=== PATIENT | male | born 1995 | race Caucasian/White ===

== ENCOUNTER 2019-07-02 09:13 | Emergency (ER) | payer OTHER ==
[2019-07-02 09:17] VITALS: BP 127/64; PULSE 78; TEMP 98; BMI 23.6
[2019-07-02] MEDS ORDERED: IBUPROFEN 400 MG TABLET (FP) PO ONE ×2 (09:29)
--- NOTE | 2019-07-02 09:33 | PDOC ---
History of Present Illness - General Chief Complaint: Injury Stated Complaint: INJURY Time Seen by Provider: 07/02/19 09:20 History Source: Patient Exam Limitations: Clinical Condition - History of Present Illness Initial Comments: 07/02/19 09:31 Patient with no significant past medical history present with complaint of pain to back of left hand status post accidentally hitting door on the left hand while at work this morning. Patient reports he was cleaning the area and accidentally hit a wooden cardboard door on the left hand. Denies numbness or tingling sensation. Patient did not take anything for pain. Denies any previous injury or trauma to hand Occurred: reports: this morning Pain Location: reports: upper extremity (left had) Method of Injury: Yes: direct blow Modifying Factors: improves with: None Loss of Consciousness: no loss of consciousness Past History - Past Medical History Allergies/Adverse Reactions: Allergies Allergy/AdvReac Type Severity Reaction Status Date / Time No Known Allergies Allergy Verified 07/02/19 09:15 Home Medications: Ambulatory Orders Ibuprofen 600 mg PO Q8H PRN #20 tablet 07/02/19 COPD: No - Psycho Social/Smoking Cessation Hx Smoking History: Never smoked Hx Alcohol Use: No Drug/Substance Use Hx: No Review of Systems - Review of Systems Able to Perform ROS?: Yes Is the patient limited B[place]ian proficient: No Constitutional: No: Weakness HEENTM: No: Symptoms Reported, See HPI, Eye Pain, Blurred Vision, Tearing, Recent change in vision, Double Vision, Cataracts, Ear Pain, Ocular Prothesis, Ear Discharge, Nose Pain, Nose Congestion, Tinnitus, Nose Bleeding, Hearing Loss , Throat Pain, Throat Swelling, Mouth Pain, Dental Problems, Difficulty Swallowing, Mouth Swelling, Other Respiratory: No: Symptoms reported, See HPI, Cough, Orthopnea, Shortness of Breath, SOB with Exertion, SOB at Rest, Stridor, Wheezing, Productive cough, Hemoptysis, Other Cardiac (ROS): No: Symptoms Reported Musculoskeletal: Yes: Symptoms Reported, See HPI, Joint Swelling (back of left hand), Muscle Pain (back of left hand) Integumentary: No: Symptoms Reported, See HPI, Bruising Neurological: No: Symptoms reported, Numbness, Paresthesia, Tingling, Weakness All Other Systems: Reviewed and Negative *Physical Exam - Vital Signs Last Vital Signs Temp Pulse Resp BP Pulse Ox 98 F 78 18 127/64 99 07/02/19 09:16 07/02/19 09:16 07/02/19 09:16 07/02/19 09:16 07/02/19 09:16 - Physical Exam 07/02/19 10:10 GENERAL: Well developed, well nourished. Awake and alert. No acute distress. PULMONARY: No evidence of respiratory distress. MUSCULOSKELETAL : mild tenderness over posterior aspect over first through third metacarpals with mild localized swelling to dorsal radial area of left hand. No bony deformities SKIN: Warm and dry. Normal capillary refill. Mild swelling to dorsal aspect of left hand over first through third metacarpals. No erythema or ecchymosis NEUROLOGICAL: Alert, awake, appropriate. No motor deficits in the lower extremities. Gait is normal without ataxia. PSYCHIATRIC: Cooperative. Good eye contact. Appropriate mood and affect. General Appearance: Yes: Nourished, Appropriately Dressed. No: Apparent Distress ED Treatment Course - RADIOLOGY Radiology Studies Ordered: Category Date Time Status HAND- LEFT [RAD] Stat Radiology 07/02/19 09:29 Ordered Medical Decision Making - Medical Decision Making 07/02/19 09:32 Patient with no significant past medical history present with complaint of pain to back of left hand status post accidentally hitting door on the left hand while at work this morning. Patient reports he was cleaning the area and accidentally hit a wooden cardboard door on the left hand. Denies numbness or tingling sensation. Patient did not take anything for pain. Denies any previous injury or trauma to hand Exam significant for moderate tenderness over 1st-3rd metacarpals with mild swelling to dorsal aspect of radial side of left hand. No tenderness to fingers or wrist. No visible deformity. Symptoms likely hand contusion versus fracture. X-ray ordered to rule out hand fracture. Motrin 800 mg p.o. ordered for pain 07/02/19 10:03 X-ray of left hand shows no acute fracture or dislocation. Patient symptoms likely hand contusion. Left hand wrapped with [place] bandage. Patient stable for discharge with advised to do cold compress today and switch to hot compress tomorrow as needed for pain and swelling and Motrin as needed for pain with orthopedics follow-up as needed Discharge - Discharge Information Problems reviewed: Yes Clinical Impression/Diagnosis: Contusion of left hand, initial encounter Condition: Stable Disposition: HOME - Admission No - Additional Discharge Information Prescriptions: Ibuprofen 600 mg PO Q8H PRN #20 tablet PRN Reason: pain - Follow up/Referral Referrals: Constantine Nelson MD [Staff Physician] - - Patient Discharge Instructions Patient Printed Discharge Instructions: DI for Contusion Additional Instructions: Hand x-ray shows no acute fracture or dislocation. Pain symptoms likely from hand contusion. Take prescribed Motrin as needed for pain. Apply cold compress today and switch to hot compress tomorrow as needed for pain and swelling. Follow-up referred to orthopedics if no improvement in 4 days - Post Discharge Activity Work/Back to School Note: Back to Work
== END 2019-07-02 10:13 | disposition home or self-care (01) ==
LOC: JERFT 09:13
DX: S60.222A Contusion of left hand, initial encounter (principal); W22.8XXA Striking against or struck by other objects, initial encounter; Y93.H9 Activity, other involving exterior property and land maintenance, building and construction; Y92.198 Other place in other specified residential institution as the place of occurrence of the external cause; Y99.0 Civilian activity done for income or pay
CPT/HCPCS: 73130-TC-LT-FY; 99283-25

== ENCOUNTER 2021-05-07 13:49 | Emergency (ER) | payer OTHER ==
[2021-05-07 13:59] VITALS: BP 147/79; PULSE 51; TEMP 97.9; BMI 25.1
== END 2021-05-07 15:09 | disposition home or self-care (01) ==
LOC: JERFT 13:49
DX: S40.011A Contusion of right shoulder, initial encounter (principal); W01.0XXA Fall on same level from slipping, tripping and stumbling without subsequent striking against object, initial encounter; W22.09XA Striking against other stationary object, initial encounter
CPT/HCPCS: 73030-TC-RT-FY; 99283-25

== ENCOUNTER 2021-05-09 18:47 | Emergency (ER) | payer OTHER ==
[2021-05-09 19:13] VITALS: BP 132/80; PULSE 63; TEMP 98.1; BMI 25.4
[2021-05-09] MEDS ORDERED: KETOROLAC TROMETHAMINE 60 MG/2 ML VIAL IM ONE (20:21)
[2021-05-09] MEDS ORDERED: KETOROLAC TROMETHAMINE 30 MG/1 ML VIAL ONE (20:37)
== END 2021-05-09 22:01 | disposition home or self-care (01) ==
LOC: JERFT 18:47
PROC: 3E0233Z Introduction of Anti-inflammatory into Muscle, Percutaneous Approach (ICD-10-PCS; principal; 2021-05-09)
DX: M25.511 Pain in right shoulder (principal)
CPT/HCPCS: 96372; 99283-25

== ENCOUNTER 2021-05-13 15:48 | Emergency (ER) | payer OTHER ==
[2021-05-13 16:24] VITALS: BP 122/73; PULSE 85; TEMP 97.5; BMI 25.1
== END 2021-05-13 20:29 | disposition home or self-care (01) ==
LOC: JERFT 15:48
DX: M25.511 Pain in right shoulder (principal)
CPT/HCPCS: 73030-TC-RT-FY; 99283-25

== ENCOUNTER 2021-11-14 21:20 | Emergency (ER) | payer OTHER ==
[2021-11-14 21:31] VITALS: BMI 22.6
[2021-11-14] MEDS ORDERED: DEXAMETHASONE SOD PHOSPHATE 10 MG/1 ML VIAL IM ONE (22:57)
[2021-11-14] MEDS ORDERED: ACETAMINOPHEN 500 MG TABLET (FP) PO ONE (22:57)
[2021-11-14] MEDS ORDERED: ACETAMINOPHEN 325 MG TABLET (FP) ONE (23:02)
[2021-11-14] MEDS ORDERED: DEXAMETHASONE SOD PHOSPHATE 10 MG/1 ML VIAL ONE (23:02)
[2021-11-14 23:34] LABS: THROAT:GRP A STREP NOT DETECTED (NOTDETECTED)
[2021-11-15 00:48] VITALS: BP 113/53; PULSE 94; TEMP 99
== END 2021-11-15 00:53 | disposition home or self-care (01) ==
LOC: JER 21:20
PROC: 3E023GC Introduction of Other Therapeutic Substance into Muscle, Percutaneous Approach (ICD-10-PCS; principal; 2021-11-14)
DX: U07.1 COVID-19 (principal)
CPT/HCPCS: 0241U-QW; 71046-TC-FY; 87651; 99284-25; J1100

== ENCOUNTER 2021-11-24 09:09 | Emergency (ER) | payer OTHER ==
[2021-11-24 09:15] VITALS: BP 117/76; PULSE 92; TEMP 97.8; BMI 22.6
[2021-11-24] MEDS ORDERED: ACETAMINOPHEN 325 MG TABLET (FP) PO ONE (09:58)
[2021-11-24] MEDS ORDERED: IBUPROFEN 600 MG TABLET (FP) PO ONE ×2 (09:58→10:01)
[2021-11-24] MEDS ORDERED: ACETAMINOPHEN 325 MG TABLET (FP) ONE (10:01)
== END 2021-11-24 10:46 | disposition home or self-care (01) ==
LOC: JERFT 09:09
DX: S99.912A Unspecified injury of left ankle, initial encounter (principal)
CPT/HCPCS: 73660-TC-FY; 99284-25

== ENCOUNTER 2023-02-19 17:42 | Emergency (ER) | payer OTHER ==
[2023-02-19 17:49] VITALS: BP 108/57; PULSE 100; RESP 18; TEMP 100; BMI 25.8
[2023-02-19] MEDS ORDERED: ACETAMINOPHEN 500 MG TABLET (FP) PO ONE (18:57)
[2023-02-19] MEDS ORDERED: IBUPROFEN 600 MG TABLET (FP) PO ONE ×2 (18:57→19:01)
[2023-02-19] MEDS ORDERED: ACETAMINOPHEN 500 MG TABLET (FP) ONE (19:01)
== END 2023-02-19 19:31 | disposition home or self-care (01) ==
LOC: JERFT 17:42
DX: R51.9 Headache, unspecified (principal); M79.10 Myalgia, unspecified site; T50.Z95A Adverse effect of other vaccines and biological substances, initial encounter
CPT/HCPCS: 99283-25

== ENCOUNTER 2023-03-09 08:25 | Emergency (ER) | payer OTHER ==
[2023-03-09 08:36] VITALS: BP 129/71; PULSE 68; RESP 18; TEMP 97.9; BMI 25.9
[2023-03-09] MEDS ORDERED: IBUPROFEN 600 MG TABLET (FP) PO ONE ×2 (09:20→09:24)
== END 2023-03-09 10:32 | disposition home or self-care (01) ==
LOC: JER 08:25
DX: R07.89 Other chest pain (principal)
CPT/HCPCS: 93005; 93010; 99283-25

== ENCOUNTER 2023-09-07 00:17 | Emergency (ER) | payer OTHER ==
[2023-09-07 00:24] VITALS: BP 135/88; PULSE 88; RESP 18; TEMP 98; BMI 23.6
[2023-09-07] MEDS ORDERED: ACETAMINOPHEN 500 MG TABLET (FP) ONE (02:22)
[2023-09-07] MEDS ORDERED: KETOROLAC TROMETHAMINE 15 MG/ML VIAL ONE (02:22)
[2023-09-07] MEDS ORDERED: LIDOCAINE 4% PATCH TP ONE (02:23)
[2023-09-07] MEDS: KETOROLAC TROMETHAMINE 15 MG/ML VIAL IM ONE (02:25)
[2023-09-07] MEDS: LIDOCAINE 5% TOPICAL PATCH TP ONE (02:26)
[2023-09-07] MEDS: ACETAMINOPHEN 500 MG TABLET (FP) PO ONE (02:26)
[2023-09-07] MEDS ORDERED: LIDOCAINE PATCH REMOVAL MC SCH (22:00)
== END 2023-09-07 02:51 | disposition home or self-care (01) ==
LOC: JER 00:17
PROC: 2W3FX1Z Immobilization of Left Hand using Splint (ICD-10-PCS; principal; 2023-09-07)
DX: S29.012A Strain of muscle and tendon of back wall of thorax, initial encounter (principal); R20.0 Anesthesia of skin; M25.511 Pain in right shoulder; X50.0XXA Overexertion from strenuous movement or load, initial encounter
CPT/HCPCS: 99284-25

== ENCOUNTER 2023-09-10 06:14 | Emergency (ER) | payer OTHER ==
[2023-09-10 06:25] VITALS: RESP 18; BMI 23.6
[2023-09-10] MEDS ORDERED: ACETAMINOPHEN 325 MG TABLET (FP) ONE (07:53)
[2023-09-10] MEDS ORDERED: KETOROLAC TROMETHAMINE 30 MG/1 ML VIAL ONE (07:53)
[2023-09-10] MEDS ORDERED: METHOCARBAMOL 500 MG TABLET ONE (07:53)
[2023-09-10] MEDS: KETOROLAC TROMETHAMINE 30 MG/1 ML VIAL IM ONE (08:03)
[2023-09-10] MEDS: ACETAMINOPHEN 500 MG TABLET (FP) PO ONE (08:03)
[2023-09-10] MEDS: METHOCARBAMOL 500 MG TABLET PO ONE (08:03)
[2023-09-10] MEDS ORDERED: oxyCODONE HCL 5 MG TABLET ONE (08:44)
[2023-09-10] MEDS: oxyCODONE HCL 5 MG TABLET PO ONE (08:47)
[2023-09-10 09:23] VITALS: BP 125/69; PULSE 63; TEMP 97.9
== END 2023-09-10 09:33 | disposition home or self-care (01) ==
LOC: JER 06:14
PROC: 3E0233Z Introduction of Anti-inflammatory into Muscle, Percutaneous Approach (ICD-10-PCS; principal; 2023-09-10)
DX: M54.6 Pain in thoracic spine (principal); M25.511 Pain in right shoulder; R20.0 Anesthesia of skin; S29.012A Strain of muscle and tendon of back wall of thorax, initial encounter; S46.011A Strain of muscle(s) and tendon(s) of the rotator cuff of right shoulder, initial encounter; X50.3XXA Overexertion from repetitive movements, initial encounter; Y99.0 Civilian activity done for income or pay
CPT/HCPCS: 99284-25

== ENCOUNTER 2023-10-07 05:44 | Emergency (ER) | payer OTHER ==
[2023-10-07 05:51] VITALS: BP 106/67; PULSE 69; RESP 18; TEMP 98.2
[2023-10-07] MEDS ORDERED: LIDOCAINE 4% PATCH TP ONE (06:22)
[2023-10-07] MEDS: LIDOCAINE 4% PATCH TP ONE (06:30)
[2023-10-07] MEDS ORDERED: LIDOCAINE PATCH REMOVAL MC SCH (22:00)
== END 2023-10-07 07:30 | disposition home or self-care (01) ==
LOC: JER 05:44
DX: M25.511 Pain in right shoulder (principal); W01.198A Fall on same level from slipping, tripping and stumbling with subsequent striking against other object, initial encounter
CPT/HCPCS: 73030-TC-RT-FY; 99283-25

== ENCOUNTER 2023-10-17 01:50 | Emergency (ER) | payer OTHER ==
[2023-10-17 01:59] VITALS: BP 111/67; PULSE 74; RESP 20; TEMP 98.4; BMI 23.6
[2023-10-17] MEDS ORDERED: LIDOCAINE 4% PATCH TP ONE (02:17)
[2023-10-17] MEDS ORDERED: KETOROLAC TROMETHAMINE 30 MG/1 ML VIAL ONE (02:17)
[2023-10-17] MEDS ORDERED: ACETAMINOPHEN 500 MG TABLET (FP) ONE (02:19)
[2023-10-17] MEDS: ACETAMINOPHEN 500 MG TABLET (FP) PO ONE (02:31)
[2023-10-17] MEDS: LIDOCAINE 4% PATCH TP ONE (02:31)
[2023-10-17] MEDS: KETOROLAC TROMETHAMINE 30 MG/1 ML VIAL IM ONE (02:31)
[2023-10-17] MEDS ORDERED: LIDOCAINE PATCH REMOVAL MC SCH (22:00)
== END 2023-10-17 03:03 | disposition home or self-care (01) ==
LOC: JER 01:50
PROC: 3E0133Z Introduction of Anti-inflammatory into Subcutaneous Tissue, Percutaneous Approach (ICD-10-PCS; principal; 2023-10-17)
DX: S20.20XA Contusion of thorax, unspecified, initial encounter (principal); M25.511 Pain in right shoulder; G89.29 Other chronic pain; W20.8XXA Other cause of strike by thrown, projected or falling object, initial encounter; Y99.0 Civilian activity done for income or pay
CPT/HCPCS: 71046-TC-FY; 73030-TC-LT-FY; 99284-25

== ENCOUNTER 2024-06-03 16:49 | Emergency (ER) | payer OTHER ==
[2024-06-03 17:13] VITALS: BP 111/68; PULSE 106; RESP 18; TEMP 100.9; BMI 25.1
[2024-06-03] MEDS ORDERED: IBUPROFEN 600 MG TABLET (FP) PO ONE (17:52)
[2024-06-03] MEDS: IBUPROFEN 600 MG TABLET (FP) PO ONE (18:00)
[2024-06-03] MEDS: ACETAMINOPHEN 325 MG TABLET (FP) PO ONE (18:00)
[2024-06-03 19:25] LABS: HIV INTERPRETATION NEGATIVE (NEGATIVE)
== END 2024-06-03 18:50 | disposition home or self-care (01) ==
LOC: JER 16:49 → JERFT 16:49
DX: J10.1 Influenza due to other identified influenza virus with other respiratory manifestations (principal); M79.10 Myalgia, unspecified site; Z20.2 Contact with and (suspected) exposure to infections with a predominantly sexual mode of transmission
CPT/HCPCS: 36415; 86632; 86780; 86803; 87389; 99283-25